=== PATIENT | female | born 1970 ===

== ENCOUNTER 2022-12-30 09:27 | Emergency (ER) | payer BC ==
--- OUTSIDE RECORDS SUMMARY | 2022-12-30 09:31 | XMS REPORT | Continuity of Care Document ---
:1970 Author Organization [facility] t Address [address] [facility] [address] [place] [address] Care Team Providers Name Role Phone Ronan Hackett MD Primary Care Physician JACKIE Attending Clinician Unavailable Zeeshan Talley Attending Clinician [phone] ANGEL ALMANZAR Attending Clinician Unavailable JACKIE Admitting Clinician Unavailable Payers Payer Name Policy Type Policy Number Effective Date Expiration Date Ayesha abi [place] [id number] 2019 00:00:00 [place] Problems Condition Condition Condition Status Onset Resolution Last Treating Co mments Source Name Details Category Date Date Treatment Clinician Date Tinea Tinea Problem Active [place] corporis Corporis 6 Commun i 00:00: ty [facility] 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 00 [facility] Deep Deep Problem Active [place] venous Venous 6 Communi thrombosis Thrombosis 00:00: ty [facility] Fatigue Fatigue Problem Active [place] 6- Communi 00:00: [facility] History of History of Problem Active S [facility] SARS-CoV-2 SARS-CoV-2 8 Co mmuni 00:00: ty 00 [facility]ospita l Clinics Chest pain Chest pain Disease Active 2014-[address] [facility] SOB SOB Disease Active 2014-[address] [facility] [address] (shortness (shortness 0-14 K[facility] kes of breath) of breath) 00:00: Me dical 00 Center Allergies, Adverse Reactions, Alerts Allergy Allergy Status Severity Reaction(s) Onset Inactive Treating Comm ents Source Name Type Date Date Clinician Codeine Propensi Active GI 2014-06 [facility] to Intolerance 0-14 [facility] adverse 00:00: Hospita reaction 00 l s to drug CODEINE Allergy Active N\T\V 2014-[address] [facility] [address] [facility] Codeine Drug Active Nausea And 2014-06 [facility] Codeine Allergy Active Hallucinatio Sw eeny to ns Communi substanc ty e Hospita l Clinics Family History Family Member Diagnosis Comments Start Date Stop Date Source Natural mother Cancer [facility] Natural mother Hypertension [facility] Natural mother Kidney cancer [facility] Paternal aunt Diabetes [facility] Paternal grandfather Stroke [facility] Paternal grandmother Vision loss Met [facility] Paternal uncle Diabetes [facility] Natural brother Heart attack [facility] Natural father Glaucoma [facility] Natural father Hypertension [facility] Maternal grandmother Breast cancer [facility] Maternal grandmother Cancer [facility] Maternal uncle Colon cancer [facility] Maternal uncle Lung cancer [facility] Social History Social Habit Start Date Stop Date Quantity Comments Source Gender identity [facility] Sexual orientation [facility] History of Social 2020-03-08 2020-03-[address] function 00:00:00 00:00:00 Hospital Tobacco use and 2017-11-13 2017-11-13 Smokeless [facility] exposure 00:00:00 00:00:00 tobacco non-user Hospital Alcohol intake 2015-04-08 2015-04-[address] [facility] 00:00:00 00:00:00 non-drinker of Medical Ce nter alcohol (finding) Sex Assigned At [address] [facility] [address] Kaila kes 00:00:00 [facility]:00 [facility] Smoking Status Start Date Stop Date Source Never Smoker [facility] Medications Ordered Filled Start Stop Current Ordering Indication Dosage Frequency Signature Comments Components Source Medication Medication Date Date Medication? Clinician (SIG) Name Name kemal 2018- Yes [id number] Take one [facility] (NAPROSYN) [id number] 500 MG 00:00: mouth Hospita tablet 00 every 12 l hours prn for foot/hand pain clobetasol- clobetasol- No clobetasol [place] emollient emollient -emollient Communi 0.05 % 0.05 % 0.05 % ty topical topical topical Hospit a cream APPLY cream APPLY cream l TOPICALLY TOPICALLY APPLY Clin ics TO THE TO THE TOPICALLY AFFECTED AFFECTED TO THE AREA TWICE AREA TWICE AFFECTED DAILY FOR DAILY FOR AREA TWICE 10 DAYS 10 DAYS DAILY FOR 10 DAYS Xarelto 10 Xarelto 10 No Xarelto 10 [place] mg tablet mg tablet mg tablet Communi take 1 take 1 take 1 ty tablet tablet tablet Hospita daily by daily by daily by l mouth mouth mouth Clinics clobetasol- clobetasol- No clobetasol [place] emollient emollient -emollient Communi 0.05 % 0.05 % 0.05 % ty topical topical topical Hospit a cream APPLY cream APPLY cream l TOPICALLY TOPICALLY APPLY Clin ics TO THE TO THE TOPICALLY AFFECTED AFFECTED TO THE AREA TWICE AREA TWICE AFFECTED DAILY FOR DAILY FOR AREA TWICE 10 DAYS 10 DAYS DAILY FOR 10 DAYS Xarelto 10 Xarelto 10 No Xarelto 10 [place] mg tablet mg tablet mg tablet Communi take 1 take 1 take 1 ty tablet tablet tablet Hospita daily by daily by daily by l mouth mouth mouth Clinics clobetasol- clobetasol- No clobetasol [place] emollient emollient -emollient Communi 0.05 % 0.05 % 0.05 % ty topical topical topical Hospit a cream APPLY cream APPLY cream l TOPICALLY TOPICALLY APPLY Clin ics TO THE TO THE TOPICALLY AFFECTED AFFECTED TO THE AREA TWICE AREA TWICE AFFECTED DAILY FOR DAILY FOR AREA TWICE 10 DAYS 10 DAYS DAILY FOR 10 DAYS sulfamethox sulfamethox No 1 Q12H sulfametho [place] azole 800 azole 800 xazole 800 Communi mg-trimetho mg-trimetho mg-trimeth ty prim 160 mg prim 160 mg oprim 160 Hospita tablet Take tablet Take mg tablet l 1 tablet 1 tablet Take 1 Clini cs every 12 every 12 tablet hours by hours by every 12 oral route. oral route. hours by oral route. Xarelto 10 Xarelto 10 No Xarelto 10 [place] mg tablet mg tablet mg tablet Communi take 1 take 1 take 1 ty tablet tablet tablet Hospita daily by daily by daily by l mouth mouth mouth Clinics Vital Signs Vital Name Observation Time Observation Value Comments Source BP Diastolic 2022-01-20 00:00:00 70 mm[Hg] [facility] Height 2022-01-20 00:00:00 67 [in_i] [facility] s BMI (Body Mass 2022-01-20 00:00:00 23.6 kg/m2 [facility]) [facility] s BP Systolic 2022-01-20 00:00:00 106 mm[Hg] [facility] s Body Weight 2022-01-20 00:00:00 2416 [oz_av] [facility] BP Diastolic 2021-12-23 00:00:00 70 mm[Hg] [facility] Height 2021-12-23 00:00:00 67 [in_i] [facility] s BMI (Body Mass 2021-12-23 00:00:00 23 kg/m2 [facility]) [facility] BP Systolic 2021-12-23 00:00:00 116 mm[Hg] [facility] Body Weight 2021-12-23 00:00:00 2352 [oz_av] [facility] BP Diastolic 2021-12-14 00:00:00 62 mm[Hg] [facility] Height 2021-12-14 00:00:00 67 [in_i] [facility] s BMI (Body Mass 2021-12-14 00:00:00 23.5 kg/m2 [facility]) [facility] BP Systolic 2021-12-14 00:00:00 104 mm[Hg] [facility] Body Weight 2021-12-14 00:00:00 2400 [oz_av] [facility] s Procedures Procedure Date / Time Performing Clinician Source Performed US, breast, bilateral 2022-01-04 00:00:[address] [facility] MAMMO, diagnostic, 2022-01-04 00:00:00 [facility] MAMMO, screening, digital, 2021-12-23 00:00:00 [facility] Cholecystectomy [facility] Plan of Care Planned Activity Planned Date Details Comments Source Future Scheduled Test 2022-12-10 Scre[facility] 12:38:53 malignant neoplasm of colon (procedure) [code = 302197073] Future Scheduled Test 2022-12-10 [facility] 12:38:53 malignant neoplasm of colon (procedure) [code = 675190905] Future Scheduled Test 2022-12-10 [facility] 12:38:53 malignant neoplasm of colon (procedure) [code = 539361828] Future Scheduled Test 2022-12-10 COVID-19 VACCINE [facility] 12:38:53 (#1) [code = COVID-19 VACCINE (#1)] Future Scheduled Test 2022-12-10 Hepatitis C Method ist [facility] 12:38:53 screening (procedure) [code = 726806831] Future Scheduled Test 2022-12-10 Screening [facility] 12:38:53 malignant neoplasm of cervix (procedure) [code = 898995296] Future Scheduled Test 2022-12-10 BREAST CANCER [facility] 12:38:53 SCREENING [code = BREAST CANCER SCREENING] Future Scheduled Test 2022-12-10 Scre[facility] 12:38:53 malignant neoplasm of colon (procedure) [code = 882748885] Future Scheduled Test 2022-12-10 [facility] 12:38:53 malignant neoplasm of colon (procedure) [code = 664179074] Future Scheduled Test 2022-12-10 SHINGLES VACCINES ([facility] 12:38:53 of 2) [code = SHINGLES VACCINES (1 of 2)] Future Scheduled Test 2022-12-10 INFLUENZA VACCINE [facility] 12:38:53 [code = INFLUENZA VACCINE] Diagnostic Test 2021-12-23 noninvasive [place] [facility] Pending 00:00:00 colorectal cancer [facility] C linics DNA + occult blood screening, QL, stool [code = noninvasive colorectal cancer DNA + occult blood screening, QL, stool] Diagnostic Test 2021-12-23 CMP, serum or plasma [facility] Pending 00:00:00 [code = CMP, serum Hospital Clinics or plasma] Diagnostic Test 2021-12-23 CBC w/ auto diff [place] [facility] Pending 00:00:00 [code = CBC w/ auto Hospital Clinics diff] Diagnostic Test 2021-12-23 lipid panel, serum [facility] Pending 00:00:00 [code = lipid panel, Hospita l Clinics serum] Diagnostic Test 2021-12-23 vitamin D, [place] [facility] Pending 00:00:00 25-hydroxy, total, Hospital Clinics serum [code = vitamin D, 25-hydroxy, total, serum] Diagnostic Test 2021-12-23 TSH, serum or plasma [facility] Pending 00:00:00 [code = TSH, serum Hospital Clinics or plasma] Future Appointment 2023-01-20 Zeeshan Talley [facility] 00:00:00 Dex Payne; [facility], [place] [address] Encounters Start End Encounter Admission Attending Care Care Encounter Source Date/Time Date/Time Type Type Clinicians Facility Department ID 2022-04-30 2022-04-30 Outpatient ERICKSON_R [facility] [id number] [place] 00:00:00 00:00:00 1105 [facility] 2022-03-27 2022-03-27 Outpatient [facility]ICKSON_R [facility] [address] [place] 00:00:00 00:00:00 1002 [facility] i [facility] Clin[facility] 2022-02-21 2022-02-21 Outpatient ERICKSON_R [facility] [address] [place] 00:00:00 00:00:00 0829 [facility] i ty [facility] Clinics 2022-01-20 2022-01-20 Outpatient ERICKSON_R [facility] [address] [place] 00:00:00 00:00:00 0728 Commun i ty Hosp[facility] Clinics 2022-01-20 2022-01-20 Outpatient Bela, [facility] [id number] 00:00:00 00:00:00 Zeeshan [id number] Merrill [id number] 2022-01-20 2022-01-20 Zeeshan [facility] [place] 00:00:00 00:00:00 [facility] - DO: [address] [facility], HOSPITAL [place], [place] CLINIC, [address] BELA , Ph. [phone] 2022-01-15 2022-01-15 Outpatient ERICKSON_R [facility] [address] [place] 01:35:00 01:35:00 0723 Commun i ty Hospita [facility] Clinics 2021-12-23 2021-12-23 Outpatient ERICKSON_R [facility] [address] [place] 09:56:00 09:56:00 0630 Commun i ty Hospita l Clinics 2021-12-23 2021-12-23 Zeeshan [facility] [place] 00:00:00 00:00:00 [facility] DO: [address] [facility], H[facility], [address] BELA , Ph. 2021-12-23 2021-12-23 Outpatient Talley, [facility] [id number] 00:00:00 00:00:00 Zeeshan [id number] [place] [id number] 2021-12-14 2021-12-14 Outpatient ERICKSON_R [facility] [address] [place] 04:14:00 04:14:00 0621 Commun i ty Hospita l Clinics 2021-12-14 2021-12-14 Zeeshan [facility] [place] 00:00:00 00:00:00 [facility] DO: [address] [facility] a [facility] [address], HOSPITAL Clinic s [facility], [address] BELA , Ph. 2021-12-14 2021-12-[address] [facility] [id number] 00:00:00 00:00:00 Zeeshan [id number] [place] [id number] 2020-03-08 2020-03-08 Emergency [facility] [id number] [address] [place] 00:00:00 00:00:00 ANGEL [address] Results This patient has no known results.
[2022-12-30] MEDS ORDERED: METHYLPREDNISOLONE 125 MG INJ ONE (09:41)
[2022-12-30] MEDS ORDERED: FAMOTIDINE 20 MG/2 ML VIAL IV ONE (09:41)
[2022-12-30] MEDS ORDERED: DIPHENHYDRAMINE 50 MG/ML VIAL ONE (09:41)
[2022-12-30] MEDS ORDERED: NA CHLORIDE 0.9% 1,000 ML ONE (09:41)
[2022-12-30] MEDS ORDERED: predniSONE 20 MG TAB ONE (10:07)
--- NOTE | 2022-12-30 10:28 | EDPHYS ---
Physician Documentation [facility] Name: Tanvi Boyle Age: 52 yrs Sex: Female : 1970 Arrival Date: 12/30/2022 Time: 09:27 Bed 5 Private MD: ED Physician George Cano HPI: 12/30 09:33 This 52 yrs old Female presents to ER via Unassigned with complaints of Allergic kb Reaction. 09:33 The patient presents with itching, rash. Onset: The symptoms/episode began/occurred kb just prior to arrival. Associated signs and symptoms: Pertinent positives: hives. Possible causes: ants. At home the patient or guardian has treated the symptoms with claritin. Severity of symptoms: At their worst the symptoms were moderate in the emergency department the symptoms are unchanged. The patient has not experienced similar symptoms in the past. The patient has not recently seen a physician. Historical: - Allergies: 09:37 No Known Allergies; os - Home Meds: 09:37 Xarelto DVT-PE Treat 30d Start 15 mg (42)- 20 mg (9) oral Tablet, Dose Pack as directed os on starter pack for Blood clot left groin [Active]; - PMHx: 09:37 Blood clots; os - Immunization history:: Adult Immunizations up to date. - Social history:: Smoking status: Patient denies any tobacco usage or history of. ROS: 09:33 Constitutional: Negative for fever, chills, and weight loss. kb 09:33 Skin: Positive for rash, diffusely. 09:33 All other systems are negative. Exam: 09:33 Constitutional: This is a well developed, well nourished patient who is awake, alert, kb and in no acute distress. Head/Face: Normocephalic, atraumatic. ENT: Moist Mucous membranes Cardiovascular: Regular rate and rhythm with a normal S1 and S2. No gallops, murmurs, or rubs. No pulse deficits. Respiratory: Respirations even and unlabored. No increased work of breathing. Talking in full sentences Abdomen/GI: Soft, non-tender. No distention MS/ Extremity: Pulses equal, no cyanosis. Neurovascular intact. Full, normal range of motion. Neuro: Awake and alert, GCS 15, oriented to person, place, time, and situation. Moves all extremities. Normal gait. 09:33 Skin: rash a moderate rash is noted, consistent with urticaria, and is diffusely located. Vital Signs: 09:38 BP 134 / 83; Pulse 97; Resp 19; Temp 97.1(TE); Pulse Ox 99% on R/A; aa5 10:30 BP 118 / 78; Pulse 63; Resp 16 S; Temp 98(TE); Pulse Ox 100% on R/A; aa5 MDM: 09:29 Patient medically screened. kb 09:35 Differential diagnosis: anaphylaxis, angioedema, urticaria. Data reviewed: vital signs, kb nurses notes. 10:27 Counseling: I had a detailed discussion with the patient and/or guardian regarding: the kb historical points, exam findings, and any diagnostic results supporting the discharge/admit diagnosis, the need for outpatient follow up, a family practitioner, to return to the emergency department if symptoms worsen or persist or if there are any questions or concerns that arise at home. Response to treatment: the patient's symptoms have markedly improved after treatment. 12/30 09:32 Order name: IV Start; Complete Time: 09:38 kb Administered Medications: 09:34 Drug: NS 0.9% IV 1000 ml Route: IV; Rate: 1000 ml; Site: right antecubital; aa5 10:40 Follow up: IV Status: Completed infusion; IV Intake: 1000ml aa5 09:34 Drug: MethylPrednisoLONE IVP 125 mg Route: IVP; Site: right antecubital; aa5 09:54 Follow up: Response: Marked relief of symptoms aa5 09:34 Drug: Famotidine IVP 20 mg Route: IVP; Site: right antecubital; aa5 09:54 Follow up: Response: Marked relief of symptoms aa5 09:34 Drug: diphenhydrAMINE IVP 25 mg Route: IVP; Site: right antecubital; aa5 09:55 Follow up: Response: Marked relief of symptoms aa5 10:01 Drug: predniSONE PO 40 mg Route: PO; aa5 10:40 Follow up: Response: No adverse reaction aa5 Disposition Summary: 12/30/22 10:28 Discharge Ordered Location: Home kb Condition: Stable kb Diagnosis - Allergic urticaria kb Followup: kb - With: Emergency Department - When: As needed - Reason: Worsening of condition Followup: kb - With: Private Physician - When: 2 - 3 days - Reason: Recheck today's complaints, Continuance of care, Re-evaluation by your physician Discharge Instructions: - Discharge Summary Sheet yefri - Hives, Enqa-xt-Eeza kb Forms: - Medication Reconciliation Form kb - Thank You Letter kb - Antibiotic Education kb - Prescription Opioid Use kb - [email or web address] kb Prescriptions: - EpiPen 0.3 mg/0.3 mL Injection Auto-Injector - administer 0.3 milliliter by SUBCUTANEOUS route once As needed; 1 unit; kb Refills: 0, Product Selection Permitted - Pepcid 20 mg Oral Tablet - take 1 tablet by ORAL route every 12 hours for 5 days; 10 tablet; Refills: 0, kb Product Selection Permitted - Prednisone 20 mg Oral Tablet - take 1 tablet by ORAL route once daily for 5 days; 5 tablet; Refills: 0, kb Product Selection Permitted Signatures: Olga Dukes, Genai Bernabe, RN RN aa5 Lakesha Araya RN RN os
--- NOTE | 2022-12-30 10:28 | ER ---
Nurse's Notes [facility] Name: Tanvi Boyle Age: 52 yrs Sex: Female : 1970 Arrival Date: 12/30/2022 Time: 09:27 Bed 5 Private MD: Diagnosis: Allergic urticaria Presentation: 12/30 09:33 Chief complaint: Patient states: Bitten by ants, redness and welts showed almost os immediately on upper back, and hives bilateral arms. Coronavirus screen: Vaccine status: Patient reports receiving the 2nd dose of the covid vaccine. na Client denies travel out of the [place] in the last 14 days. At this time, the client does not indicate any symptoms associated with coronavirus-19. Ebola Screen: Patient negative for fever greater than or equal to 101.5 degrees Fahrenheit, and additional compatible Ebola Virus Disease symptoms. Onset: The symptoms/episode began/occurred acutely, 1 hour(s) ago. Anaphylaxis evaluation, the patient reports or I have noted the following symptoms which indicate a significant risk of anaphylaxis: no signs or symptoms of anaphylaxis were noted. Initial Sepsis Screen: Does the patient meet any 2 criteria? No. Patient's initial sepsis screen is negative. Initial Sepsis Screen: Does the patient have a suspected source of infection? No. Patient's initial sepsis screen is negative. Risk Assessment: Do you want to hurt yourself or someone else? Patient reports no desire to harm self or others. Onset of symptoms was December 30, 2022. 09:33 Method Of Arrival: Ambulatory os 09:33 Acuity: NANCY 3 os Triage Assessment: 09:38 General: Appears distressed, Behavior is cooperative, appropriate for age, anxious. os Pain: Denies pain. Historical: - Allergies: 09:37 No Known Allergies; os - Home Meds: 09:37 Xarelto DVT-PE Treat 30d Start 15 mg (42)- 20 mg (9) oral Tablet, Dose Pack as directed os on starter pack for Blood clot left groin [Active]; - PMHx: 09:37 Blood clots; os - Immunization history:: Adult Immunizations up to date. - Social history:: Smoking status: Patient denies any tobacco usage or history of. Screenin:34 [facility] ED Fall Risk Assessment (Adult) History of falling in the last 3 months, aa5 including since admission No falls in past 3 months (0 pts) Confusion or Disorientation No (0 pts) Intoxicated or Sedated No (0 pts) Impaired Gait No (0 pts) Mobility Assist Device Used No (0 pt) Altered Elimination No (0 pt) Score/Fall Risk Level 0 - 2 = Low Risk. 09:39 Abuse screen: Denies threats or abuse. Nutritional screening: No deficits noted. ap3 Tuberculosis screening: No symptoms or risk factors identified. Assessment: 09:30 General: Appears uncomfortable, Behavior is calm, cooperative. Pain: Denies pain. aa5 Neuro: Level of Consciousness is awake, alert, obeys commands, Oriented to person, place, time, situation. Cardiovascular: Heart tones S1 S2 present Rhythm is regular. Respiratory: Airway is patent Respiratory effort is even, unlabored, Respiratory pattern is regular, symmetrical, Breath sounds are clear bilaterally. Denies shortness of breath. GI: No signs and/or symptoms were reported involving the gastrointestinal system. : No signs and/or symptoms were reported regarding the genitourinary system. EENT: Reports pressure to james ears . Derm: Skin is flushed, red, whelps noted to back, behinds ears, james arms, and to posterior knees. Reports itching. 09:30 Musculoskeletal: Range of motion: intact in all extremities. aa5 09:55 Reassessment: Patient is alert, oriented x 3, equal unlabored respirations, skin aa5 warm/dry/pink. Patient states feeling better. Patient states symptoms have improved. Redness and whelps have improved. . 10:40 Reassessment: Patient is alert, oriented x 3, equal unlabored respirations, skin aa5 warm/dry/pink. Patient states feeling better. Patient states symptoms have improved. Vital Signs: 09:38 BP 134 / 83; Pulse 97; Resp 19; Temp 97.1(TE); Pulse Ox 99% on R/A; aa5 10:30 BP 118 / 78; Pulse 63; Resp 16 S; Temp 98(TE); Pulse Ox 100% on R/A; aa5 ED Course: 09:29 Patient arrived in ED. im 09:29 Ol[facility]C [facility] kb 09:29 George Cano MD is Attending Physician. kb 09:31 Genia Piña, RN is Primary Nurse. aa5 09:34 Inserted saline lock: 20 gauge in right antecubital area, using aseptic technique. ll1 Blood collected. 09:36 Triage completed. os 09:39 Patient has correct armband on for positive identification. Call light in reach. Side ap3 rails up X2. media monitor on. Pulse ox on. NIBP on. 09:39 Arm band placed on left wrist. ap3 10:40 No provider procedures requiring assistance completed. IV discontinued, intact, aa5 bleeding controlled, No redness/swelling at site. Pressure dressing applied. Administered Medications: 09:34 Drug: NS 0.9% IV 1000 ml Route: IV; Rate: 1000 ml; Site: right antecubital; aa5 10:40 Follow up: IV Status: Completed infusion; IV Intake: 1000ml aa5 09:34 Drug: MethylPrednisoLONE IVP 125 mg Route: IVP; Site: right antecubital; aa5 09:54 Follow up: Response: Marked relief of symptoms aa5 09:34 Drug: Famotidine IVP 20 mg Route: IVP; Site: right antecubital; aa5 09:54 Follow up: Response: Marked relief of symptoms aa5 09:34 Drug: diphenhydrAMINE IVP 25 mg Route: IVP; Site: right antecubital; aa5 09:55 Follow up: Response: Marked relief of symptoms aa5 10:01 Drug: predniSONE PO 40 mg Route: PO; aa5 10:40 Follow up: Response: No adverse reaction aa5 Medication: 09:54 VIS not applicable for this client. aa5 Intake: 10:40 IV: 1000ml; Total: 1000ml. aa5 Outcome: 10:28 Discharge ordered by . kb 10:40 Discharged to home ambulatory, with family. aa5 10:40 Condition: improved 10:40 Discharge instructions given to patient, Instructed on discharge instructions, follow up and referral plans. medication usage, Demonstrated understanding of instructions, follow-up care, medications, Prescriptions given X 3. 10:45 Patient left the ED. aa5 Signatures: Olga Dukes, MOTOR MECHANIC-C MOTOR MECHANIC-Genia Trivedi, RN RN aa5 Anastasia Lawson RN RN ap3 Aisha Gallagher RN RN ll1 Lakesha Araya RN Andra Hernandez im Corrections: (The following items were deleted from the chart) 10:00 09:38 BP 134 / 83; Pulse 97bpm; Resp 19bpm; Pulse Ox 99% RA; ap3 aa5
[2022-12-30 11:12] VITALS: BP 134/83; TEMP 97.1; O2SAT 99
== END 2022-12-30 10:45 | disposition home or self-care (01) ==
LOC: ER 09:27
DX: L50.0 Allergic urticaria (principal); Z86.718 Personal history of other venous thrombosis and embolism; Z79.01 Long term (current) use of anticoagulants
CPT/HCPCS: 96361; 96375; 96374; 99285; J7512; J1200; J2930; J7030